=== PATIENT | female | born 1995 | race Caucasian/White ===

== ENCOUNTER 2017-12-05 00:56 | Outpatient (CLI) | payer MEDICAID, SELFPAY ==
--- NOTE | 2017-12-05 09:08 | DI.REPORT_ITS ---
SYMPTOM/DIAGNOSIS: SURVEY Z34.82, MULTIGRAVIDA IN 2ND TRIMESTER OBSTETRICAL ULTRASOUND: Routine examination was performed. There is a single living intrauterine gestation. Estimated sonographic age is 18 weeks 4 days. No abnormalities are identified. Estimated weight is 245 grams The placenta is anterior without evidence of previa. IMPRESSION: Single living intrauterine gestation. Estimated sonographic age is 18 weeks 4 days. Many abnormalities cannot be diagnosed. A normal exam does not exclude a congenital anomaly. Radiology No. [id number] LMP: 07/31/17 Exam Date: 12/05/17 [facility] wks days on EDC ([facility]) 05/07/18 Confirmed: HISTORY: SLIGHT SPOTTING 2-3 WEEKS AGO. SURVEY ---- PREDICTED GESTATIONAL AGE NUMBER 18 weeks with a range of 17 week to 19 weeks. 1 Determined by___1STUS_XX__LMP___HISTORY Info. pertaining to fetus # PLACENTA PRESENTATION Grade 0-I Cephalic___ Anterior_XX__Posterior___ Breech_XX__ Right Left Transverse(head right___ Fundal___Low-lying___Previa___ Transverse(head left___ Varying BIOMETRY AMNIOTIC FLUID BPD: 42 mm 18 +5 weeks Normal HC: 158 mm 18 +5 weeks AC: 133 mm 18 +6 weeks FL: 27 mm 18 +1 weeks AMNIOTIC FLUID INDEX >26 WK CRL: mm weeks Cisterna Magna: 3 mm CI: 0.79 RUQ: LUQ Cerebellum: 1.9 cm EFW: 245 grams Percentile RLQ: LLQ Total: cms Composite AGE= 18 +4 wks EDC by US__05/04/2018 BIOPHYSICAL PROFILE ANATOMY IDENTIFIED SCORE 0/2 Heart: 4-Chamber_XX__Rate:BPM___140__ LVOT:___X RVOT: X___ Amniotic Fluid(>2cms)____ Stomach:___X____ Kidneys:_X Respirations (>30 secs) Bladder:___X Post. Fossa:__X Body Flex/Extension 3 vessel cord:___X____Ventricles:____X cord insertion:__X___ Lips:_X___ Extremity Flex/Extension spinal morphology:__X Nose:X Total Score= Palate:___X____ NS=not seen
== END 2017-12-05 00:57 ==
PROVIDERS: PCP Family Medicine; Visit Provider Advanced Practice Midwife
DX: O09.622 Supervision of young multigravida, second trimester (principal); Z34.82 Encounter for supervision of other normal pregnancy, second trimester
CPT/HCPCS: 76805

== ENCOUNTER 2018-01-19 13:27 | Outpatient (REF) | payer MEDICAID, SELFPAY ==
[2018-01-19 14:53] LABS: *AMPHETAMINES SCREEN URINE Negative (Negative); *BARBITURATES SCREEN URINE Negative (Negative); *BENZODIAZEPINES SCREEN URINE Negative (Negative); Cannabinoids THC Negative (Negative); Cocaine Screen,Urine Negative (Negative); METHADONE URINE SCREEN Negative (Negative); OPIATES URINE SCREEN Negative (Negative)
[2018-01-19 15:02] LABS: Tricyclic Antidepressants Negative (Negative)
[2018-01-21 15:01] LABS: Buprenorphine 619.7 ng/mL; Norbuprenorphine 2426.9 ng/mL
== END 2018-01-19 13:47 ==
LOC: LBN 13:27
PROVIDERS: PCP Family Medicine; Visit Provider Midwife
DX: Z34.91 Encounter for supervision of normal pregnancy, unspecified, first trimester (principal)
CPT/HCPCS: 80307

== ENCOUNTER 2018-02-16 09:46 | Outpatient (CLI) | payer MEDICAID, SELFPAY ==
[2018-02-16 10:28] LABS: HCT 30.9 % (36.0-46.0); HGB 10.1 g/dL (12.0-15.5); Mean Corp. HGB Concentration 32.7 g/dL (32.0-36.0); Mean Corpuscular Hemoglobin 26.5 pg (27.0-33.0); Mean Corpuscular Volume 81.1 fL (80-95); Mean Platelet Volume 11.2 fL (8.0-11.0); Platelet Count 154 x1000/uL (130-400); RBC 3.81 m/cumm (4.00-5.20); RBC Distribution Width 14.2 % (11.7-14.6); White Blood Cell Count 9.64 k/cumm (4.4-10.8)
[2018-02-16 10:35] LABS: Glucose,1 Hr (Glucola) 76 mg/dL (80-140)
== END 2018-02-16 10:06 ==
PROVIDERS: Midwife; PCP Family Medicine; Visit Provider Advanced Practice Midwife
DX: Z34.92 Encounter for supervision of normal pregnancy, unspecified, second trimester (principal)
CPT/HCPCS: 36415; 82950; 85027; 86850

== ENCOUNTER 2018-02-18 12:20 | Observation (INO) | payer MEDICAID, SELFPAY | END 2018-02-18 14:54 | disposition home or self-care (01) | LOC: NUR 14:47 | PROVIDERS: Admitting Provider Advanced Practice Midwife; PCP Family Medicine; Visit Provider Advanced Practice Midwife | DX: R69 Illness, unspecified (principal) | CPT/HCPCS: 59025; G0378 ==

== ENCOUNTER 2018-02-18 14:54 | Observation (INO) | payer MEDICAID, SELFPAY ==
[2018-02-18 15:37] LABS: Bilirubin Negative (Negative); Blood Negative (Negative); Clarity Clear; Glucose Negative (Negative); Ketones Negative (Negative); Leukocyte Esterase Negative (Negative); Nitrite Negative (Negative); Specific Gravity 1.015 (1.005-1.025); Urobilinogen 0.2 EU/dL (Up TO 0.2)
[2018-02-18 15:48] LABS: *AMPHETAMINES SCREEN URINE Negative (Negative); *BARBITURATES SCREEN URINE Negative (Negative); *BENZODIAZEPINES SCREEN URINE Negative (Negative); Cannabinoids THC Negative (Negative); Cocaine Screen,Urine Negative (Negative); METHADONE URINE SCREEN Negative (Negative); OPIATES URINE SCREEN Negative (Negative)
[2018-02-18 15:57] LABS: Tricyclic Antidepressants Negative (Negative)
== END 2018-02-18 16:02 | disposition home or self-care (01) ==
LOC: OBS 14:55
PROVIDERS: Admitting Provider Advanced Practice Midwife; PCP Family Medicine; Visit Provider Advanced Practice Midwife
DX: O60.03 Preterm labor without delivery, third trimester (principal); Z3A.28 28 weeks gestation of pregnancy; O99.323 Drug use complicating pregnancy, third trimester; O99.313 Alcohol use complicating pregnancy, third trimester; D64.9 Anemia, unspecified; F11.20 Opioid dependence, uncomplicated
CPT/HCPCS: 80307; 59025; 81003; G0378

== ENCOUNTER 2018-02-24 16:51 | Observation (INO) | payer MEDICAID, SELFPAY ==
[2018-02-24 17:38] LABS: Fetal Fibronectin Negative (Negative)
== END 2018-02-24 17:48 | disposition home or self-care (01) ==
LOC: OBS 16:58
PROVIDERS: Admitting Provider Advanced Practice Midwife; PCP Family Medicine; Visit Provider Advanced Practice Midwife
DX: O60.03 Preterm labor without delivery, third trimester (principal); O99.323 Drug use complicating pregnancy, third trimester; F11.20 Opioid dependence, uncomplicated; Z3A.29 29 weeks gestation of pregnancy
CPT/HCPCS: 82731; G0378

== ENCOUNTER 2018-03-03 01:08 | Outpatient (CLI) | payer MEDICAID, SELFPAY ==
--- NOTE | 2018-03-03 10:12 | DI.US_ITS ---
SYMPTOMS/DIAGNOSIS: S </= D, SMOKER, Z34.90 OB ULTRASOUND: There is a single living intrauterine gestation. The estimated sonographic age is 30 weeks 3 days. The heart rate is 140 bpm. anatomic evaluation was not performed at this time. The estimated weight is 1564 grams which is the 27th percentile. The placenta is anterior. No evidence of previa. The amniotic fluid index is 14.7 cm. Visually the amniotic fluid is within normal limits. The fetus was in the transverse presentation with the head toward the right. IMPRESSION: Single living intrauterine gestation. Estimated sonographic age is 30 weeks 3 days. Estimated date of delivery is 05/19/18. Many abnormalities cannot be diagnosed. A normal exam does not exclude a congenital anomaly. Radiology No. [id number] LMP: Exam Date: 03/03/18 [facility] wks days on EDC ([facility]) 05/07/18 Confirmed: HISTORY: afit/weight ---- PREDICTED GESTATIONAL AGE NUMBER 30+5 weeks with a range of 29+5 weeks to 31+5 weeks. 1 Determined by 1STUS X LMP___HISTORY Info. pertaining to fetus # PLACENTA PRESENTATION Grade II Cephalic___ Anterior X Posterior___ Breech____ Right Left Transverse(head right X Fundal___Low-lying___Previa___ Transverse(head left___ Varying BIOMETRY AMNIOTIC FLUID BPD: 74 mm 29+6 weeks Normal HC: 283 mm 31 weeks Oligo Polyhydramnios AC: 265 mm 30+4 weeks FL: 57 mm 30 weeks AMNIOTIC FLUID INDEX >26 WK CRL: mm weeks Cisterna Magna: mm CI: 74 RUQ: 3.27 LUQ: Cerebellum: cm EFW: 1564 grams Percentile 27% RLQ: 4.81 LLQ: 6.64 Total: 14.7 cms Composite AGE= 30+3 wks EDC by US 05/09/18 BIOPHYSICAL PROFILE ANATOMY IDENTIFIED SCORE 0/2 Heart: 4-Chamber X Rate: 140 BPM LVOT: RVOT: Amniotic Fluid(>2cms)____ Stomach: Kidneys: Respirations (>30 secs) Bladder: Post. Fossa: Body Flex/Extension 3 vessel cord: Ventricles: cord insertion: Lips:____ Extremity Flex/Extension spinal morphology: Nose: Total Score= Palate: NS=not seen Calcifications seen in placenta.
== END 2018-03-03 01:28 ==
PROVIDERS: PCP Family Medicine; Visit Provider Advanced Practice Midwife
DX: O26.843 Uterine size-date discrepancy, third trimester (principal); F17.200 Nicotine dependence, unspecified, uncomplicated
CPT/HCPCS: 76816

== ENCOUNTER 2018-03-03 12:26 | Outpatient (REF) | payer MEDICAID, SELFPAY ==
[2018-03-03 13:09] LABS: Fetal Fibronectin Positive (Negative)
[2018-03-03 14:49] LABS: *AMPHETAMINES SCREEN URINE Negative (Negative); *BARBITURATES SCREEN URINE Negative (Negative); *BENZODIAZEPINES SCREEN URINE Negative (Negative); Cannabinoids THC Negative (Negative); Cocaine Screen,Urine Negative (Negative); METHADONE URINE SCREEN Negative (Negative); OPIATES URINE SCREEN Negative (Negative)
[2018-03-03 14:55] LABS: Tricyclic Antidepressants Negative (Negative)
== END 2018-03-03 12:46 ==
LOC: LBN 12:26
PROVIDERS: PCP Family Medicine; Visit Provider Nurse Practitioner
DX: O47.9 False labor, unspecified (principal); O99.89 Other specified diseases and conditions complicating pregnancy, childbirth and the puerperium; M54.9 Dorsalgia, unspecified; Z87.898 Personal history of other specified conditions
CPT/HCPCS: 80307; 82731; 87086

== ENCOUNTER 2018-03-25 18:01 | Observation (INO) | payer MEDICAID, SELFPAY | END 2018-03-25 18:56 | disposition home or self-care (01) | LOC: OBS 03-28 10:32 | PROVIDERS: Admitting Provider Advanced Practice Midwife; PCP Family Medicine; Visit Provider Advanced Practice Midwife | DX: R69 Illness, unspecified (principal) ==

== ENCOUNTER 2018-03-25 18:01 | Observation (INO) | payer MEDICAID, SELFPAY ==
[2018-03-25 19:08] LABS: Fetal Fibronectin Negative (Negative)
[2018-03-25 19:16] LABS: ROM Plus Negative
[2018-03-25 19:30] LABS: Bilirubin Negative (Negative); Blood Negative (Negative); Clarity Clear; Glucose Negative (Negative); Ketones Negative (Negative); Leukocyte Esterase Trace (Negative); Nitrite Negative (Negative); Specific Gravity 1.015 (1.005-1.025); Urobilinogen >=8.0 EU/dL (Up TO 0.2); pH 8.5 (5-8)
[2018-03-25 19:31] LABS: Bacteria Negative HPF (Negative); C & S Indicated? Yes; Casts Negative LPF (Negative); Crystals Negative HPF (Negative); Epithelial Cells Few HPF (Negative); Mucus Negative (Negative); Other Cells Negative (Negative)
== END 2018-03-25 20:03 | disposition home or self-care (01) ==
LOC: OBS 03-29 17:17
PROVIDERS: Admitting Provider Nurse Practitioner; PCP Family Medicine; Visit Provider Nurse Practitioner
DX: O47.03 False labor before 37 completed weeks of gestation, third trimester (principal); Z3A.34 34 weeks gestation of pregnancy
CPT/HCPCS: 84112; 81003; 81015; 82731; 87081; 87086

== ENCOUNTER 2018-04-10 18:36 | Outpatient (REF) | payer MEDICAID, SELFPAY | END 2018-04-10 18:56 | LOC: LBN 18:36 | PROVIDERS: PCP Family Medicine; Visit Provider Advanced Practice Midwife | DX: Z34.93 Encounter for supervision of normal pregnancy, unspecified, third trimester (principal); Z36.85 Encounter for antenatal screening for Streptococcus B | CPT/HCPCS: 87081 ==

== ENCOUNTER 2018-04-13 16:06 | Observation (INO) | payer MEDICAID, SELFPAY ==
[2018-04-13] MEDS: Acetaminophen 500 MG TAB 1000 MG PO (17:05)
[2018-04-13 17:27] LABS: ROM Plus Negative
== END 2018-04-13 18:06 | disposition home or self-care (01) ==
PROVIDERS: Admitting Provider Advanced Practice Midwife; PCP Family Medicine; Visit Provider Advanced Practice Midwife
DX: O47.03 False labor before 37 completed weeks of gestation, third trimester (principal); Z3A.36 36 weeks gestation of pregnancy; O99.323 Drug use complicating pregnancy, third trimester; F11.20 Opioid dependence, uncomplicated
CPT/HCPCS: 84112; 59025; G0378

== ENCOUNTER 2018-05-05 12:32 | Inpatient (IN) | payer MEDICAID, SELFPAY ==
[2018-05-05 14:21] LABS: HCT 29.4 % (36.0-46.0); HGB 9.6 g/dL (12.0-15.5); Mean Corp. HGB Concentration 32.7 g/dL (32.0-36.0); Mean Corpuscular Hemoglobin 25.6 pg (27.0-33.0); Mean Corpuscular Volume 78.4 fL (80-95); Mean Platelet Volume 11.5 fL (8.0-11.0); Platelet Count 154 x1000/uL (130-400); RBC 3.75 m/cumm (4.00-5.20); RBC Distribution Width 14.5 % (11.7-14.6); White Blood Cell Count 14.81 k/cumm (4.4-10.8)
[2018-05-05] MEDS: Lactated Ringers 500 ML 999 ML IV (15:20)
[2018-05-05] MEDS: fentaNYL 100 MCG/2 ML VIAL EP (15:30)
[2018-05-05] MEDS: Bupivacaine 0.25% Pres-Free 30 ML VIAL (15:30)
[2018-05-05] MEDS: Lactated Ringers 200 ML 400 ML IV (16:00)
[2018-05-05] MEDS: Lactated Ringers 1,000 ML 125 ML IV (16:43)
[2018-05-05] MEDS: Acetaminophen 325 MG TAB 650 MG PO ×2 (17:44→20:45)
[2018-05-06] MEDS: Acetaminophen 325 MG TAB 650 MG PO (02:00)
[2018-05-06 06:11] LABS: HCT 31.4 % (36.0-46.0); HGB 9.9 g/dL (12.0-15.5); Mean Corp. HGB Concentration 31.5 g/dL (32.0-36.0); Mean Corpuscular Hemoglobin 24.8 pg (27.0-33.0); Mean Corpuscular Volume 78.5 fL (80-95); Mean Platelet Volume 11.4 fL (8.0-11.0); Platelet Count 160 x1000/uL (130-400); RBC Distribution Width 14.7 % (11.7-14.6); White Blood Cell Count 15.15 k/cumm (4.4-10.8)
== END 2018-05-06 07:00 | disposition home or self-care (01) | DRG 806 ==
PROVIDERS: Admitting Provider Advanced Practice Midwife; PCP Family Medicine; Visit Provider Advanced Practice Midwife
DX: O99.324 Drug use complicating childbirth (principal); F11.20 Opioid dependence, uncomplicated; Z37.0 Single live birth; F17.213 Nicotine dependence, cigarettes, with withdrawal; O99.334 Smoking (tobacco) complicating childbirth; Z3A.39 39 weeks gestation of pregnancy; F17.210 Nicotine dependence, cigarettes, uncomplicated; O99.02 Anemia complicating childbirth; D64.9 Anemia, unspecified
CPT/HCPCS: 36415; 85027; 86850; 86900; 86901; J3010; J3490

== ENCOUNTER 2018-10-16 21:40 | Emergency (ER) | payer MEDICAID, SELFPAY ==
[2018-10-16] VITALS (8 sets, daily range): BP systolic 109; BP diastolic 79; PULSE 60–81; RESP 13–18; TEMP 36.3; O2SAT 100
--- NOTE | 2018-10-16 22:03 | ED.GENADUL_ITS ---
Discharge Plan Disposition Patient Disposition: HOME Discharge Details Chief Complaint: ChemExpose Clinical Impression: Headache, Nausea Primary Care Provider: Álvaro Brown ED Provider: Trevor Alvarez Home Meds and New Rx's Prescriptions: Continued buprenorphine HCl 2 mg tablet, sublingual 20 mg SL DAILY RF: 0 Discharge Instructions Instructions: Carbon Monoxide Poisoning (ED), General Headache (ED) Additional Instructions: Please contact your primary care physician to arrange follow-up. Return to the ER for any worsening or new concerning symptoms. Referrals: Álvaro Brown [Primary Care Provider] - Medical Decision Making 10:11 --23-year-old female seen immediately on arrival. Patient has had exposure to carbon monoxide in her home today. She has had headache and nausea since 430. Read 57 measuring 10. Plan to obtain carboxyhemoglobin. We will give high flow mask oxygen. Plan to obtain ECG to assess for arrhythmia. --ECG reviewed and interpreted by me: Sinus rhythm 63 bpm, normal axis, low voltage in limb leads, nondiagnostic. Labs reviewed and carboxyhemoglobin is low at 2.2%. This is especially low given the fact that she is a smoker. I do not believe she is suffering from carbon monoxide poisoning. Patient was reassessed and notes significant improvement after being given Tylenol. Patient has no headache at this time. Home is been determined to be safe by fire department. Disposition decision was made weighing the risks and benefits of hospitalization versus outpatient treatment, the risk for further decompensation, and the patient's wishes. The patient was stable and requested discharge. Prior to discharge, my usual and customary return precautions were reviewed with the patient - this included follow-up instructions and reason to return to the emergency department if condition worsens, does not improve as expected, or other new concerns arise. Lab Data Laboratory Tests Range/Units 10/16/18 10/16/18 10/16/18 22:33 22:33 22:33 WBC (4.4-10.8) k/cumm 6.32 RBC (4.00-5.20) m/cumm 5.40 H Hgb (12.0-15.5) g/dL 14.4 Hct (36.0-46.0) % 42.6 MCV (80-95) fL 78.9 L MCH (27.0-33.0) pg 26.7 L MCHC (32.0-36.0) g/dL 33.8 RDW (11.7-14.6) % 13.7 Plt Count (130-400) x1000/uL 215 MPV (8.0-11.0) fL 10.7 Immature Gran % 0.0 Neutrophils % 49.9 Lymphocytes % 38.1 Monocytes % 5.2 Eosinophils % 6.3 Basophils % 0.5 Absolute Neutrophils (1.2-6.7) k/cumm 3.15 Absolute Lymphocytes (1.2-3.4) k/cumm 2.41 Absolute Monocytes (0.11-0.7) k/cumm 0.33 Absolute Eosinophils (0.0-0.7) k/cumm 0.40 Absolute Basophils (0.0-0.2) k/cumm 0.03 Carboxyhemoglobin % % Sodium (136-145) mmol/L 139 Potassium (3.5-5.1) mmol/L 3.7 Chloride (98-107) mmol/L 103 Carbon Dioxide (21.0-32.0) mmol/L 23.1 Anion Gap (3-11) mmol/L 12.9 H BUN (7-18) mg/dL 14 Creatinine (0.55-1.02) mg/dL 0.78 Estimated GFR/1.73 m2 (mL/min/1.73m2) >= 60.00 Glucose (70-100) mg/dL 101 H Lactate (0.6-1.4) mmol/l Calcium (8.5-10.1) mg/dL 9.1 Total Bilirubin (0.2-1.0) mg/dL 1.2 H AST (15-37) U/L 47 H ALT (12-78) U/L 68 Alkaline Phosphatase (46-116) U/L 106 Troponin I (0.00-0.06) ng/mL < 0.02 Total Protein (6.4-8.2) g/dL 7.6 Albumin (3.4-5.0) g/dL 4.2 Range/Units 10/16/18 10/16/18 22:33 22:33 WBC (4.4-10.8) k/cumm RBC (4.00-5.20) m/cumm Hgb (12.0-15.5) g/dL Hct (36.0-46.0) % MCV (80-95) fL MCH (27.0-33.0) pg MCHC (32.0-36.0) g/dL RDW (11.7-14.6) % Plt Count (130-400) x1000/uL MPV (8.0-11.0) fL Immature Gran % Neutrophils % Lymphocytes % Monocytes % Eosinophils % Basophils % Absolute Neutrophils (1.2-6.7) k/cumm Absolute Lymphocytes (1.2-3.4) k/cumm Absolute Monocytes (0.11-0.7) k/cumm Absolute Eosinophils (0.0-0.7) k/cumm Absolute Basophils (0.0-0.2) k/cumm Carboxyhemoglobin % % 2.2 Sodium (136-145) mmol/L Potassium (3.5-5.1) mmol/L Chloride (98-107) mmol/L Carbon Dioxide (21.0-32.0) mmol/L Anion Gap (3-11) mmol/L BUN (7-18) mg/dL Creatinine (0.55-1.02) mg/dL Estimated GFR/1.73 m2 (mL/min/1.73m2) Glucose (70-100) mg/dL Lactate (0.6-1.4) mmol/l 1.2 Calcium (8.5-10.1) mg/dL Total Bilirubin (0.2-1.0) mg/dL AST (15-37) U/L ALT (12-78) U/L Alkaline Phosphatase (46-116) U/L Troponin I (0.00-0.06) ng/mL Total Protein (6.4-8.2) g/dL Albumin (3.4-5.0) g/dL HPI General Mode of arrival: ambulatory . Date/Time Provider Initiated Documentation: 10/16/18 21:43 . Limitations to Documentation: no limitations . Information obtained by: patient . HPI Narrative: 23-year-old female smoker presents with chief complaint of headache. Patient notes that she was home in her apartment this morning and the carbon monoxide detector alarm went off. Somebody in the apartment looked into it and noted that was probably from a candle. She went to sleep and took a nap when she woke up this afternoon a ca rbon monoxide detectors were again alarming, the fire department responded and noted that the carbon monoxide level in the house was greater than 100. Patient notes that she started to express headache and nausea around 4:30 PM and this has persisted. Symptoms are moderate to severe. She has no associated numbness or tingling. No palpitations. No visual changes. Related Data Home Medications Medication Instructions Recorded Confirmed buprenorphine HCl 2 mg sublingual 20 mg SL DAILY tab 04/17/18 10/16/18 tablet Allergies Allergy/AdvReac Type Severity Reaction Status Date / Time dicloxacillin Allergy Intermediate Hives/Itchi Unverified 10/16/18 22:44 ng Review of Systems Review of Systems All systems reviewed & are unremarkable except as noted in HPI and below Constitutional Reports headache(s) ENT Reports headache(s) Gastrointestinal Reports abdominal pain (Few days which she attributes to celiac disease) Neurologic Reports as per HPI and Reports headache(s) FOR[facility]LY [facility], [facility] Medical History Celiac disease (Chronic) Family History Mother No problems noted. Father No problems noted. Daughter No problems noted. Daughter No problems noted. 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 Date GA/Weeks # Outcome Route Wgt Sex Labor Lgth Anesthesia Location Prov Complic 05/02/13 38 No Successful vaginal 4.281 kg Female 14 hrs [facility] 10/30/16 41 No Successful vaginal 3.714 kg Female 6 hrs [facility] 05/05/18 39 No Successful vaginal 3.232 kg Male 5 hrs. 56 min. samara zaragoza cnm Delivery Date: 05/05/18 No notes to display Delivery Date: 10/30/16 On 04/10/18 @ 16:21 [facility] epidural Delivery Date: 05/02/13 On 04/10/18 @ 16:21 [facility] epidural Exam Const General: cooperative, uncomfortable, no acute distress and well developed [facility] Head: normocephalic and atraumatic Mouth: moist mucous membranes Eyes Conjunctivae: normal conjunctivae Sclera: normal sclerae EOM: EOM intact bilaterally Neck Neck: trachea midline and supple Resp Auscultation: clear to auscultation bilaterally, no rales, no rhonchi and no wheezes Cardio Jugular venous pressure: no JVD Rate: regular rate and not tachycardic Rhythm: regular rhythm GI Palpation: soft, not firm, no guarding, no masses, not rigid and nontender Skin General skin exam: no rashes or lesions noted Neuro General: alert, awake, oriented x3 and tone normal Cranial Nerves: CN's II-XI intact bilaterally Cognition: normal cognition Speech: speech normal Motor: muscle tone normal throughout and strength 5/5 throughout Sensory Exam: no sensory deficits noted Extrem General: no edema Psych Appearance: grossly normal
[2018-10-16 22:49] LABS: Lactate-non-spesis 1.2 mmol/l (0.6-1.4)
[2018-10-16 22:51] LABS: Absolute Basophil Count 0.03 k/cumm (0.0-0.2); Absolute Lymphocyte Count 2.41 k/cumm (1.2-3.4); Absolute Monocyte Count 0.33 k/cumm (0.11-0.7); Absolute Neutrophil Count 3.15 k/cumm (1.2-6.7); Basophils % 0.5; Eosinophils % 6.3; HCT 42.6 % (36.0-46.0); HGB 14.4 g/dL (12.0-15.5); Lymphocytes % 38.1; Mean Corp. HGB Concentration 33.8 g/dL (32.0-36.0); Mean Corpuscular Hemoglobin 26.7 pg (27.0-33.0); Mean Corpuscular Volume 78.9 fL (80-95); Mean Platelet Volume 10.7 fL (8.0-11.0); Monocytes % 5.2; Neutrophils % 49.9; Platelet Count 215 x1000/uL (130-400); RBC Distribution Width 13.7 % (11.7-14.6); White Blood Cell Count 6.32 k/cumm (4.4-10.8)
[2018-10-16 22:53] LABS: Carboxyhemoglobin 2.2 %
[2018-10-16 23:12] LABS: ALT 68 U/L (12-78); AST 47 U/L (15-37); Albumin 4.2 g/dL (3.4-5.0); Alkaline Phosphatase 106 U/L (46-116); Anion Gap 12.9 mmol/L (3-11); BUN 14 mg/dL (7-18); Bilirubin, Total 1.2 mg/dL (0.2-1.0); CO2 23.1 mmol/L (21.0-32.0); CREATININE 0.78 mg/dL (0.55-1.02); Calcium 9.1 mg/dL (8.5-10.1); Chloride 103 mmol/L (98-107); Glucose 101 mg/dL (70-100); Potassium 3.7 mmol/L (3.5-5.1); Sodium 139 mmol/L (136-145); Total Protein 7.6 g/dL (6.4-8.2)
[2018-10-16] MEDS: Acetaminophen 325 MG TAB 650 MG PO (23:14)
[2018-10-16 23:17] LABS: Troponin I < 0.02 ng/mL (0.00-0.06)
[2018-10-17 00:09] VITALS: PULSE 74; O2SAT 100
== END 2018-10-16 23:50 | disposition home or self-care (01) ==
PROVIDERS: Emergency Provider Student in an Organized Health Care Education/Training Program; PCP Family Medicine
DX: R51 Headache (principal); R11.0 Nausea; F17.210 Nicotine dependence, cigarettes, uncomplicated
CPT/HCPCS: 36415; 80053; 82375; 93005; 99284; 83605; 84484; 85025; 93010